=== PATIENT | male | born 1975 | race Caucasian/White ===

== ENCOUNTER 2020-06-28 16:29 | Emergency (ER) | payer OTHER ==
[~2020-06-28] VITALS: Ht 172.7 cm; Wt 90.0 kg
[2020-06-28] MEDS ORDERED: PIPERACILLIN/TAZ 3.375G PREMIX 50 ML IV ONE (17:00)
[2020-06-28] MEDS ORDERED: HYDR-4346 MT ×2 (17:37→17:40)
[2020-06-28 17:47] LABS: HEMATOCRIT. 39.7 % (42.0-52.0); HEMOGLOBIN. 13.2 g/dL (14.0-18.0); MEAN CORPUSCULAR HEMOGLOBIN 30.1 pg (28.0-32.0); MEAN CORPUSCULAR VOLUME 90.7 fL (80.0-94.0); MEAN PLATELET VOLUME 7.6 fl (7.4-10.4); PLATELET 307 x1000/uL (130-400); RED BLOOD CELL COUNT 4.38 mill/uL (4.7-6.1); RED CELL DISTRIBUTION WIDTH 14.1 % (11.6-14.6)
[2020-06-28 17:50] LABS: CHLORIDE 107 mEq/L (98-107)
[2020-06-28 18:34] LABS: PLATELET ESTIMATE NORMAL
[2020-06-28] MEDS ORDERED: DOXY100C2 MT (18:44)
[2020-06-28] MEDS ORDERED: IBUP-2029 MT (18:44)
[2020-06-28 19:00] VITALS: BP 150/97
== END 2020-06-28 19:03 | disposition home or self-care (01) ==
LOC: ER 16:29
DX: L03.114 Cellulitis of left upper limb (principal); R03.0 Elevated blood-pressure reading, without diagnosis of hypertension; S80.812A Abrasion, left lower leg, initial encounter; S80.811A Abrasion, right lower leg, initial encounter; T14.8XXA Other injury of unspecified body region, initial encounter; X58.XXXA Exposure to other specified factors, initial encounter; Y93.9 Activity, unspecified; Y92.9 Unspecified place or not applicable
CPT/HCPCS: 36415; 73130; 80053; 85025; 87040; 96365; 99284; J2543; Z7610